=== PATIENT | male | born 1985 | race Caucasian/White ===

== ENCOUNTER → 2019-04-26 | Outpatient (CLI) | payer OTHER, MEDICAID ==
[2019-04-26 09:25] LABS: CALCIUM 8.9 mg/dL (8.5-10.1); POTASSIUM 4.4 mmol/L (3.5-5.1)
== END | disposition home or self-care (01) ==
LOC: LAB 08:45 → MERGE 08:45
PROVIDERS: ATTEND Internal Medicine
DX: I10 Essential (primary) hypertension (principal)
CPT/HCPCS: 36415; 80048

== ENCOUNTER → 2021-11-06 | Outpatient (CLI) | payer MEDICARE, MEDICAID ==
--- NOTE | 2021-11-06 13:34 | RAD ---
AP, lateral, and oblique views of the right hand were performed. History: Smashed hand week and half ago Comparison: none. There is a fracture at the base of the fifth metacarpal which extends to or very near to the articula r surface of the carpometacarpal joint. There is mild associated subcutaneous swelling. Electronically signed by: Matthew Fulton MD (11/06/2021 1:32 PM) [id number]
== END ==
LOC: RAD 13:16
PROVIDERS: ATTEND Nurse Practitioner Family
DX: S69.91XA Unspecified injury of right wrist, hand and finger(s), initial encounter (principal); S92.351A Displaced fracture of fifth metatarsal bone, right foot, initial encounter for closed fracture; M79.89 Other specified soft tissue disorders; X58.XXXA Exposure to other specified factors, initial encounter; Y93.89 Activity, other specified; Y92.89 Other specified places as the place of occurrence of the external cause; Y99.8 Other external cause status
CPT/HCPCS: 73130